=== PATIENT | female | born 1985 | race Caucasian/White ===

== ENCOUNTER 2016-02-17 16:29 | Inpatient (IN) | payer OTHER ==
[2016-02-17 16:32] VITALS: BMI 31.8
--- NOTE | 2016-02-17 19:51 | HP ---
CIWA Score - CIWA Score Nausea/Vomitin-Int. Nausea w/Dry Heave Muscle Tremors: 3 Anxiety: 3 Agitation: 3 Paroxysmal Sweats: 3 Orientation: 0-Oriented Tacttile Disturbances: 1-Very Mild Itch/Numbness Auditory Disturbances: 0-None Visual Disturbances: 0-None Headache: 2-Mild CIWA-Ar Total Score: 19 Admission ROS BHS - HPI Chief Complaint: WITHDRAWAL SYMPTOMS Allergies/Adverse Reactions: Allergies Allergy/AdvReac Type Severity Reaction Status Date / Time clindamycin Allergy Verified 02/17/16 19:48 Fish Containing Products Allergy Verified 02/17/16 19:48 sulfur dioxide AdvReac Verified 02/17/16 19:48 History of Present Illness: 30 Y.O. WOMAN WITH AN EXTENSIVE HISTORY OF ALCOHOL AND DRUG DEPENDENCE IS SEEKING DETOX. SHE REPORTS HAVING A 2 YEAR PERIOD OF SOBRIETY. SHE HAS COMPLETED MULTIPLE DETOXES AND REHABS AT OTHER FACILITIES. Exam Limitations: No Limitations - Ebola screening Have you traveled outside of the country in the last 21 days: No Have you had contact with anyone from an Ebola affected area: No Have you been sick,other than usual withdrawal symptoms: No Do you have a fever: No - Review of Systems Constitutional: Chills, Changes in sleep EENT: reports: Blurred Vision, Tearing Respiratory: reports: Cough, Shortness of Breath Cardiac: reports: No Symptoms Reported GI: reports: Diarrhea, Nausea, Abdominal cramping : reports: No Symptoms Reported Musculoskeletal: reports: Back Pain Integumentary: reports: No Symptoms Reported Neuro: reports: Headache, Numbness, Tingling (B/L FEET) Endocrine: reports: No Symptoms Reported Hematology: reports: No Symptoms Reported Psychiatric: reports: Orientated x3, Depressed Other Systems: Reviewed and Negative Patient History - Patient Medical History Hx Anemia: No Hx Asthma: No Hx Chronic Obstructive Pulmonary Disease (COPD): No Hx Cancer: No Hx Cardiac Disorders: No Hx Congestive Heart Failure: No Hx Hypertension: No Hx Hypercholesterolemia: No Hx Pacemaker: No HX Cerebrovascular Accident: No Hx Seizures: Yes (BENZO RELATED; LAST SZ ON 02/16/16) Hx Dementia: No Hx Diabetes: No Hx Gastrointestinal Disorders: Yes (ACID REFLUX ) Hx Liver Disease: No Hx Genitourinary Disorders: No Hx Sexually Transmitted Disorders: No Hx Renal Disease (ESRD): No Hx Thyroid Disease: No Hx Human Immunodeficiency Virus (HIV): No Hx Hepatitis C: No Hx Depression: Yes (PRESCRIBED ATIVAN AND PROZAC ) Hx Suicide Attempt: No Hx Bipolar Disorder: No Hx Schizophrenia: No - Patient Surgical History Past Surgical History: Yes Hx Neurologic Surgery: No Hx Cataract Extraction: No Hx Cardiac Surgery: No Hx Lung Surgery: No Hx Breast Surgery: No Hx Breast Biopsy: No Hx Abdominal Surgery: No Hx Appendectomy: No Hx Cholecystectomy: No Hx Genitourinary Surgery: No Hx Section: No Hx Orthopedic Surgery: No Hx Hysterectomy: Yes (LEFT-SIDED FACIAL RECONSTRUCTION SX-2013) Anesthesia Reaction: No - PPD History Previous Implant?: Yes Documented Results: Negative w/o proof PPD to be Administered?: Yes - Reproductive History Patient is a Female of Child Bearing Age (11 -55 yrs old): Yes Last Menstrual Period: 01/22/16 Patient : No - Smoking Cessation Smoking history: Current every day smoker Have you smoked in the past 12 months: Yes Aproximately how many cigarettes per day: 20 Hx Chewing Tobacco Use: No Initiated information on smoking cessation: Yes 'Breaking Loose' booklet given: 02/17/16 - Substance & Tx. History Hx Alcohol Use: Yes (VODKA ) Hx Substance Use: Yes (ATIVAN ) Substance Use Type: Prescribed Hx Substance Use Treatment: Yes (DETOX AND REHAB ) - Substances Abused Alcohol Route: Oral Frequency: Daily Amount used: 2 PINTS OF LIQUOR Age of first use: 17 Date of Last Use: 02/17/16 ATIVAN Route: Oral Frequency: Daily Amount used: 6MG Age of first use: 24 Date of Last Use: 02/16/16 Family Disease History - Family Disease History Family Disease History: CA: Grandparent (COLON ) Admission Physical Exam BHS - Vital Signs Vital Signs: Vital Signs - 24 hr 02/17/16 16:30 Temperature 98.3 F Pulse Rate 90 Respiratory 20 Rate Blood Pressure 167/100 - Physical General Appearance: Yes: Disheveled, Tremorous, Sweating, Anxious HEENTM: Yes: Hearing grossly Normal, Normal Voice, Nasal Congestion, Other (LEFT -SIDED FACIAL DEFORMITY) Respiratory: Yes: Chest Non-Tender, No Respiratory Distress, No Accessory Muscle Use, Wheezing Neck: Yes: No masses,lesions,Nodules, Trachea in good position Breast: Yes: Breast Exam Deferred Cardiology: Yes: Regular Rhythm, Regular Rate Abdominal: Yes: Normal Bowel Sounds, Non Tender, Flat, Soft Genitourinary: Yes: Within Normal Limits Back: Yes: Normal Inspection Musculoskeletal: Yes: Back pain Extremities: Yes: Normal Inspection, Normal Range of Motion, Non-Tender, Tremors Neurological: Yes: Fully Oriented, Alert, Normal Mood/Affect, Normal Response Integumentary: Yes: Normal Color, Dry, Warm Lymphatic: Yes: Within Normal Limits - Diagnostic (1) Alcohol dependence with uncomplicated withdrawal Current Visit: Yes Status: Chronic (2) Sedative, hypnotic or anxiolytic dependence with withdrawal, uncomplicated Current Visit: Yes Status: Chronic (3) GERD (gastroesophageal reflux disease) Current Visit: Yes Status: Chronic Cleared for Admission [facility] - Detox or Rehab [facility] Level of Care: Medically Managed Detox Regimen/Protocol: Valium [facility] Breath Alcohol Content Breath Alcohol Content: 0.112 Urine Pregancy Test - Result Urine Test Results: Negative- NO Line Present Urine Drug Screen - Results Drug Screen Negative: No Urine Drug Screen Results: THC-Marijuana
[2016-02-17] MEDS ORDERED: NICOTINE POLACRILEX 2 MG GUM BUC PRN (20:01)
[2016-02-17] MEDS ORDERED: guaiFENesin/D-METHORPHAN HB 10 ML UNIT-DOSE CUPS PO PRN (20:01)
[2016-02-17] MEDS ORDERED: diazePAM 5 MG TABLET PO PRN (20:01)
[2016-02-17] MEDS ORDERED: IBUPROFEN 400 MG TABLET (FP) PO PRN (20:01)
[2016-02-17] MEDS ORDERED: P-EPHED 60MG/TRIPROLIDI 2.5MG TABLET PO PRN (20:01)
[2016-02-17] MEDS ORDERED: LOPERAMIDE HCL 2 MG CAPSULE PO PRN (20:01)
[2016-02-17] MEDS ORDERED: MENTHOL/PHENOL 1 EACH UD MM PRN (20:01)
[2016-02-17] MEDS ORDERED: MAGNESIUM HYDROX 2400MG/30ML ORAL SUSPENSION 30 ML CUP PO PRN (20:01)
[2016-02-17] MEDS ORDERED: MAG HYDROX/AL HYDROX/SIMETH 30 ML UNIT-DOSE CUP PO PRN (20:01)
[2016-02-17] MEDS ORDERED: diphenhydrAMINE HCL 50 MG CAPSULE PO PRN (20:01)
[2016-02-17] MEDS ORDERED: MAGNESIUM CITRATE 300 ML BOTTLE PO PRN (20:01)
[2016-02-17] MEDS ORDERED: diazePAM 5 MG TABLET PO ONE (20:01)
[2016-02-17] MEDS: diazePAM 5 MG TABLET PO SCH (22:55)
[2016-02-17] MEDS: THIAMINE HCL 100 MG TABLET (FP) PO SCH (23:11)
[2016-02-18] MEDS: diazePAM 5 MG TABLET PO SCH (05:42)
[2016-02-18] MEDS ORDERED: ONDANSETRON 8 MG TABLET (FP) PO PRN (07:07)
[2016-02-18] MEDS: hydrOXYzine PAMOATE 50 MG CAPSULE (FP) PO PRN ×2 (07:09→12:24)
[2016-02-18] MEDS: RANITIDINE HCL 150 MG TABLET (FP) PO SCH (10:23)
[2016-02-18] MEDS: PRENATAL VITAMINS W/ FOLIC ACID TABLET (FP) PO SCH (10:23)
[2016-02-18 10:24] LABS: URINE APPEARANCE CLEAR; URINE BILIRUBIN NEGATIVE (NEGATIVE); URINE BLOOD 3+ (NEGATIVE); URINE COLOR YELLOW; URINE GLUCOSE (UA) NEGATIVE (NEGATIVE); URINE KETONE TRACE (NEGATIVE); URINE LEUK ESTERASE NEGATIVE (NEGATIVE); URINE NITRITE NEGATIVE (NEGATIVE); URINE PROTEIN NEGATIVE (NEGATIVE); URINE UROBILINOGEN NEGATIVE E.U./dl (0.2-1.0)
[2016-02-18] MEDS: NICOTINE 21 MG/24 HOURS TOPICAL PATCH TD SCH (10:24)
[2016-02-18 10:32] LABS: MCH 33.4 pg (25.7-33.7); MCHC 33.6 g/dl (32.0-36.0); MEAN CELL VOLUME 99.2 fl (80-96); MEAN PLT VOLUME 8.2 fl (7.5-11.1); PLATELET COUNT 298 K/MM3 (134-434); RDW 14.6 % (11.6-15.6); WHITE BLOOD COUNT 7.6 K/mm3 (4.0-10.0)
[2016-02-18 11:13] LABS: URINE BACTERIA RARE /hpf (NONE SEEN); URINE MUCUS FEW; URINE RBC 8 /hpf (0-3); URINE WBC 5 /hpf (3-5)
[2016-02-18 11:19] LABS: ALBUMIN 3.7 g/dl (3.4-5.0); ANION GAP 9 (8-16); CALCIUM 8.4 mg/dL (8.5-10.1); CO2 24 mmol/L (21-32); CREATININE 0.6 mg/dL (0.55-1.02); GLUCOSE,RANDOM 91 mg/dL (74-106); SGOT/AST 19 U/L (15-37); SGPT/ALT 22 U/L (12-78)
[2016-02-18 11:21] LABS: ALK PHOS 53 U/L (45-117); BILIRUBIN,TOTAL 0.4 mg/dL (0.2-1.0); TOT PROT 6.7 g/dl (6.4-8.2)
--- NOTE | 2016-02-18 11:28 | EKG ---
Test Reason : Blood Pressure : / mmHG Vent. Rate : 082 BPM Atrial Rate : 082 BPM P-R Int : 140 ms QRS Dur : 082 ms QT Int : 414 ms P-R-T Axes : -20 062 050 degrees QTc Int : 483 ms NORMAL SINUS RHYTHM PROLONGED QT ABNORMAL ECG NO PREVIOUS ECGS AVAILABLE Confirmed by WEI SEGUNDO MD ([id number]) on 02/18/2016 11:28:00 AM Referred By: Confirmed By:WEI SEGUNDO MD
--- NOTE | 2016-02-18 12:13 | PN ---
S CIWA - CIWA Score Nausea/Vomitin Muscle Tremors: 3 Anxiety: 3 Agitation: 3 Paroxysmal Sweats: 1-Minimal Palms Moist Orientation: 0-Oriented Tacttile Disturbances: 1-Very Mild Itch/Numbness Auditory Disturbances: 1-Very Mild Visual Disturbances: 1-Very Mild Sensitivity Headache: 2-Mild CIWA-Ar Total Score: 18 S Progress Note (SOAP) Subjective: ALERT,IRRITABLE,ANXIOUS,INTERRUPTED SLEEP,TREMOR,PAIN IN THE BODY Objective: 02/18/16 12:10 Vital Signs Temperature 97.5 F L 02/18/16 10:31 Pulse Rate 92 H 02/18/16 10:31 Respiratory Rate 18 02/18/16 10:31 Blood Pressure 127/76 02/18/16 10:31 O2 Sat by Pulse Oximetry (%) EKG NSR.PROLONG QT 02/18/16 12:11 Laboratory Last Values WBC 7.6 K/mm3 (4.0-10.0) 02/18/16 08:00 RBC 3.91 M/mm3 (3.60-5.2) 02/18/16 08:00 Hgb 13.1 GM/dL (10.7-15.3) 02/18/16 08:00 Hct 38.8 % (32.4-45.2) 02/18/16 08:00 MCV 99.2 fl (80-96) H 02/18/16 08:00 MCHC 33.6 g/dl (32.0-36.0) 02/18/16 08:00 RDW 14.6 % (11.6-15.6) 02/18/16 08:00 Plt Count 298 K/MM3 (134-434) 02/18/16 08:00 MPV 8.2 fl (7.5-11.1) 02/18/16 08:00 Sodium 139 mmol/L (136-145) 02/18/16 08:00 Potassium 3.7 mmol/L (3.5-5.1) 02/18/16 08:00 Chloride 106 mmol/L (98-107) 02/18/16 08:00 Carbon Dioxide 24 mmol/L (21-32) 02/18/16 08:00 Anion Gap 9 (8-16) 02/18/16 08:00 BUN 6 mg/dL (7-18) L 02/18/16 08:00 Creatinine 0.6 mg/dL (0.55-1.02) 02/18/16 08:00 Creat Clearance w eGFR > 60 (>60) 02/18/16 08:00 Random Glucose 91 mg/dL (74-106) 02/18/16 08:00 Calcium 8.4 mg/dL (8.5-10.1) L 02/18/16 08:00 Total Bilirubin 0.4 mg/dL (0.2-1.0) 02/18/16 08:00 AST 19 U/L (15-37) 02/18/16 08:00 ALT 22 U/L (12-78) 02/18/16 08:00 Alkaline Phosphatase 53 U/L (45-117) 02/18/16 08:00 Total Protein 6.7 g/dl (6.4-8.2) 02/18/16 08:00 Albumin 3.7 g/dl (3.4-5.0) 02/18/16 08:00 Urine Color Yellow 02/18/16 08:00 Urine Appearance Clear 02/18/16 08:00 Urine pH 6.0 (5.0-8.0) 02/18/16 08:00 Ur Specific [place] 1.015 (1.001-1.035) 02/18/16 08:00 Urine Protein Negative (NEGATIVE) 02/18/16 08:00 Urine Glucose (UA) Negative (NEGATIVE) 02/18/16 08:00 Urine Ketones Trace (NEGATIVE) H 02/18/16 08:00 Urine Blood 3+ (NEGATIVE) H 02/18/16 08:00 Urine Nitrite Negative (NEGATIVE) 02/18/16 08:00 Urine Bilirubin Negative (NEGATIVE) 02/18/16 08:00 Urine Urobilinogen Negative E.U./dl (0.2-1.0) 02/18/16 08:00 Ur Leukocyte Esterase Negative (NEGATIVE) 02/18/16 08:00 Urine RBC 8 /hpf (0-3) 02/18/16 08:00 Urine WBC 5 /hpf (3-5) 02/18/16 08:00 Ur Epithelial Cells Rare /hpf (FEW) 02/18/16 08:00 Urine Bacteria Rare /hpf (NONE SEEN) 02/18/16 08:00 Urine Mucus Few 02/18/16 08:00 02/18/16 12:11 LABS PENDING Assessment: 02/18/16 12:11 WITHDRAWAL SYMPTOM Plan: CONTINUE DETOX,PATIENT WOULD LIKE REGIMENT TO CHANGE TO [facility]RIUM
[2016-02-18] MEDS: ONDANSETRON *ODT* 4 MG TABLET SL PRN (12:24)
[2016-02-18] MEDS: chlordiazePOXIDE HCL 25 MG CAPSULE PO SCH ×2 (18:00→22:06)
[2016-02-18] MEDS: chlordiazePOXIDE HCL 25 MG CAPSULE PO PRN (19:48)
[2016-02-18] MEDS: THIAMINE HCL 100 MG TABLET (FP) PO SCH (22:06)
[2016-02-18] MEDS: hydrOXYzine PAMOATE 50 MG CAPSULE (FP) PO SCH (22:06)
[2016-02-18] MEDS: ACETAMINOPHEN 325 MG TABLET (FP) PO PRN (22:07)
[2016-02-19] MEDS: chlordiazePOXIDE HCL 25 MG CAPSULE PO SCH ×4 (05:54→22:10)
[2016-02-19] MEDS: ONDANSETRON *ODT* 4 MG TABLET SL PRN (08:35)
[2016-02-19] MEDS: chlordiazePOXIDE HCL 25 MG CAPSULE PO PRN ×3 (08:35→18:54)
[2016-02-19] MEDS ORDERED: diazePAM 5 MG TABLET PO SCH (10:00)
[2016-02-19] MEDS: PRENATAL VITAMINS W/ FOLIC ACID TABLET (FP) PO SCH (10:10)
[2016-02-19] MEDS: RANITIDINE HCL 150 MG TABLET (FP) PO SCH (10:10)
[2016-02-19] MEDS: NICOTINE 21 MG/24 HOURS TOPICAL PATCH TD SCH (10:11)
[2016-02-19] MEDS: hydrOXYzine PAMOATE 50 MG CAPSULE (FP) PO PRN ×2 (10:39→15:19)
[2016-02-19] MEDS ORDERED: TRIMETHOBENZAMIDE HCL 300 MG CAPSULE PO PRN (10:52)
[2016-02-19] MEDS ORDERED: LIDOCAINE 5% TOPICAL PATCH TP ONE (10:53)
--- NOTE | 2016-02-19 10:54 | PN ---
S CIWA - CIWA Score Nausea/Vomitin-Mild Nausea/No Vomiting Muscle Tremors: 4-Moderate,w/Arms Extend Anxiety: 4-Mod. Anxious/Guarded Agitation: 4-Moderately Restless Paroxysmal Sweats: 3 Orientation: 0-Oriented Tacttile Disturbances: 0-None Auditory Disturbances: 0-None Visual Disturbances: 0-None Headache: 1-Very Mild CIWA-Ar Total Score: 17 BHS Progress Note (SOAP) Subjective: interrupted sleep sweats shakes headache nausea diarrhea back pain Objective: 02/19/16 10:58 Vital Signs Temperature 97.7 F 02/19/16 10:26 Pulse Rate 80 02/19/16 10:26 Respiratory Rate 18 02/19/16 10:26 Blood Pressure 118/76 02/19/16 10:26 O2 Sat by Pulse Oximetry (%) Laboratory Tests 02/18/16 02/18/16 02/18/16 08:00 08:00 08:00 WBC 7.6 RBC 3.91 Hgb 13.1 Hct 38.8 MCV 99.2 H MCHC 33.6 RDW 14.6 Plt Count 298 MPV 8.2 Sodium 139 Potassium 3.7 Chloride 106 Carbon Dioxide 24 Anion Gap 9 BUN 6 L Creatinine 0.6 Creat Clearance w eGFR > 60 Random Glucose 91 Calcium 8.4 L Total Bilirubin 0.4 AST 19 ALT 22 Alkaline Phosphatase 53 Total Protein 6.7 Albumin 3.7 Urine Color Urine Appearance Urine pH Ur Specific [place] Urine Protein Urine Glucose (UA) Urine Ketones Urine Blood Urine Nitrite Urine Bilirubin Urine Urobilinogen Ur Leukocyte Esterase Urine RBC Urine WBC Ur Epithelial Cells Urine Bacteria Urine Mucus RPR Titer Nonreactive 02/18/16 08:00 WBC RBC Hgb Hct MCV MCHC RDW Plt Count MPV Sodium Potassium Chloride Carbon Dioxide Anion Gap BUN Creatinine Creat Clearance w eGFR Random Glucose Calcium Total Bilirubin AST ALT Alkaline Phosphatase Total Protein Albumin Urine Color Yellow Urine Appearance Clear Urine pH 6.0 Ur Specific [place] 1.015 Urine Protein Negative Urine Glucose (UA) Negative Urine Ketones Trace H Urine Blood 3+ H Urine Nitrite Negative Urine Bilirubin Negative Urine Urobilinogen Negative Ur Leukocyte Esterase Negative Urine RBC 8 Urine WBC 5 Ur Epithelial Cells Rare Urine Bacteria Rare Urine Mucus Few RPR Titer awake/alert ambulating no acute distress Assessment: 02/19/16 11:06 withdrawal sx Plan: continue detox increase fluids lidocaine patch motrin 600mg prn
--- NOTE | 2016-02-19 11:54 | CONSULT ---
[facility] Psychiatric Consult - Data Date of interview: 02/19/16 Admission source: [facility] Identifying data: This is 30 years old female with no psychiatric hospitalization history intoxicated with: Alcohool, Benzodiazepins and Nicotine Substance Abuse History: - Smoking Cessation. Smoking history: Current every day smoker. Have you smoked in the past 12 months: Yes. Aproximately how many cigarettes per day: 20. Hx Chewing Tobacco Use: No. Initiated information on smoking cessation: Yes. 'Breaking Loose' booklet given: 02/17/16. - Substance & Tx. History. Hx Alcohol Use: Yes (VODKA ). Hx Substance Use: Yes (ATIVAN ). Substance Use Type: Prescribed. Hx Substance Use Treatment: Yes (DETOX AND REHAB ). - Substances Abused. Alcohol. Route: Oral. Frequency: Daily. Amount used: 2 PINTS OF LIQUOR. Age of first use: 17. Date of Last Use: . ATIVAN. Route: Oral. Frequency: Daily. Amount used: 6MG. Age of first use: 24. Date of Last Use: 02/16/16 Medical History: GERD Psychiatric History: Patient reports history of depression and anxiety, reports taking prior to admission: Prozac 30mg poqd. Ambien 10mg po qhs Physical/Sexual Abuse/Trauma History: Denies Additional Comment: Prozac 30mg poqd. Ambien 10mg po qhs Mental Status Exam - Mental Status Exam Alert and Oriented to: Person Cognitive Function: Fair Patient Appearance: Unkempt Mood: Sad Affect: Flat Patient Behavior: Cooperative Speech Pattern: Appropriate Voice Loudness: Normal Thought Process: Goal Oriented Thought Disorder: Being Controlled Hallucinations: Denies Suicidal Ideation: Denies Homicidal Ideation: Denies Insight/Judgement: Fair Sleep: Difficulty falling asleep Appetite: Fair Muscle strength/Tone: Normal Gait/Station: Normal Additional Comments: Prozac 30mg poqd. Ambien 10mg po qhs Psychiatric Findings - Problem List ([place] 1, 2,3) (1) Alcohol dependence with uncomplicated withdrawal Current Visit: Yes Status: Chronic (2) Sedative, hypnotic or anxiolytic dependence with withdrawal, uncomplicated Current Visit: Yes Status: Chronic (3) Drug-induced mood disorder Current Visit: Yes Status: Acute - Initial Treatment Plan Initial Treatment Plan: Prozac 30mg poqd. Ambien 10mg po qhs
[2016-02-19] MEDS: FLUoxetine HCL 20 MG CAPSULE (FP) PO SCH (15:19)
[2016-02-19] MEDS: IBUPROFEN 600 MG TABLET (FP) PO PRN (18:09)
[2016-02-19] MEDS: ZOLPIDEM TARTRATE 10 MG TABLET (PARK CARE ONLY) PO PRN (22:10)
[2016-02-19] MEDS: hydrOXYzine PAMOATE 50 MG CAPSULE (FP) PO SCH (22:11)
[2016-02-19] MEDS: ACETAMINOPHEN 325 MG TABLET (FP) PO PRN (22:12)
[2016-02-19] MEDS: THIAMINE HCL 100 MG TABLET (FP) PO SCH (22:12)
[2016-02-20] MEDS: chlordiazePOXIDE HCL 25 MG CAPSULE PO SCH ×2 (05:52→10:18)
[2016-02-20] MEDS: chlordiazePOXIDE HCL 25 MG CAPSULE PO PRN ×2 (07:47→12:13)
[2016-02-20] MEDS ORDERED: LIDOCAINE 5% TOPICAL PATCH TP SCH (10:00)
[2016-02-20] MEDS: RANITIDINE HCL 150 MG TABLET (FP) PO SCH (10:18)
[2016-02-20] MEDS: PRENATAL VITAMINS W/ FOLIC ACID TABLET (FP) PO SCH (10:18)
[2016-02-20] MEDS: FLUoxetine HCL 20 MG CAPSULE (FP) PO SCH (10:18)
[2016-02-20] MEDS: NICOTINE 21 MG/24 HOURS TOPICAL PATCH TD SCH (10:19)
[2016-02-20] MEDS: IBUPROFEN 600 MG TABLET (FP) PO PRN ×2 (10:21→22:26)
--- NOTE | 2016-02-20 13:49 | PN ---
BHS Progress Note (SOAP) Subjective: interrupted sleep, sweats, nausea , lbp Objective: 02/20/16 13:48 Vital Signs Temperature 97.5 F L 02/20/16 09:45 Pulse Rate 84 02/20/16 09:45 Respiratory Rate 20 02/20/16 09:45 Blood Pressure 140/82 02/20/16 09:45 O2 Sat by Pulse Oximetry (%) Laboratory Tests 02/18/16 02/18/16 02/18/16 08:00 08:00 08:00 WBC 7.6 RBC 3.91 Hgb 13.1 Hct 38.8 MCV 99.2 H MCHC 33.6 RDW 14.6 Plt Count 298 MPV 8.2 Sodium 139 Potassium 3.7 Chloride 106 Carbon Dioxide 24 Anion Gap 9 BUN 6 L Creatinine 0.6 Creat Clearance w eGFR > 60 Random Glucose 91 Calcium 8.4 L Total Bilirubin 0.4 AST 19 ALT 22 Alkaline Phosphatase 53 Total Protein 6.7 Albumin 3.7 Urine Color Urine Appearance Urine pH Ur Specific [place] Urine Protein Urine Glucose (UA) Urine Ketones Urine Blood Urine Nitrite Urine Bilirubin Urine Urobilinogen Ur Leukocyte Esterase Urine RBC Urine WBC Ur Epithelial Cells Urine Bacteria Urine Mucus RPR Titer Nonreactive 02/18/16 08:00 WBC RBC Hgb Hct MCV MCHC RDW Plt Count MPV Sodium Potassium Chloride Carbon Dioxide Anion Gap BUN Creatinine Creat Clearance w eGFR Random Glucose Calcium Total Bilirubin AST ALT Alkaline Phosphatase Total Protein Albumin Urine Color Yellow Urine Appearance Clear Urine pH 6.0 Ur Specific [place] 1.015 Urine Protein Negative Urine Glucose (UA) Negative Urine Ketones Trace H Urine Blood 3+ H Urine Nitrite Negative Urine Bilirubin Negative Urine Urobilinogen Negative Ur Leukocyte Esterase Negative Urine RBC 8 Urine WBC 5 Ur Epithelial Cells Rare Urine Bacteria Rare Urine Mucus Few RPR Titer pt aox3 in nad ambulating Assessment: 02/20/16 13:48 withdrawl sx's Plan: cont. detox increase fluids d/c in am
[2016-02-20] MEDS: hydrOXYzine PAMOATE 50 MG CAPSULE (FP) PO PRN (16:24)
[2016-02-20] MEDS: chlordiazePOXIDE 5 MG CAPSULE PO SCH ×2 (18:14→22:25)
[2016-02-20] MEDS: ZOLPIDEM TARTRATE 10 MG TABLET (PARK CARE ONLY) PO PRN (22:25)
[2016-02-20] MEDS: hydrOXYzine PAMOATE 50 MG CAPSULE (FP) PO SCH (22:25)
[2016-02-20] MEDS: THIAMINE HCL 100 MG TABLET (FP) PO SCH (22:26)
[2016-02-21] MEDS: chlordiazePOXIDE 5 MG CAPSULE PO SCH (05:43)
[2016-02-21 06:08] VITALS: BP 118/59; PULSE 61; TEMP 97.7
--- NOTE | 2016-02-21 09:13 | DS ---
[facility] Detox Discharge Summary Admission Date: 02/17/16 Discharge Date: 02/21/16 - History Present History: Alcohol Dependence, Sedative Dependence - Physical Exam Results Vital Signs: Vital Signs Temperature 97.7 F 02/21/16 06:00 Pulse Rate 61 02/21/16 06:00 Respiratory Rate 18 02/21/16 06:00 Blood Pressure 118/59 02/21/16 06:00 O2 Sat by Pulse Oximetry (%) - Treatment Hospital Course: Detox Protocol Followed, Detoxed Safely, Responded well, Discharged Condition Good - Medication Discharge Medications: Ambulatory Orders Fluoxetine HCl [Prozac -] 20 mg PO DAILY 02/17/16 Fluoxetine HCl [Prozac -] 20 mg PO DAILY #30 capsule 02/19/16 Zolpidem Tartrate [Ambien] 10 mg PO HS PRN #14 tablet MDD 10 02/19/16 - Diagnosis (1) Drug-induced mood disorder Current Visit: Yes Status: Chronic (2) Alcohol dependence with uncomplicated withdrawal Current Visit: Yes Status: Chronic (3) GERD (gastroesophageal reflux disease) Current Visit: Yes Status: Chronic Qualifiers: Esophagitis presence: without esophagitis Qualified Code(s): K21.9 - Gastro-esophageal reflux disease without esophagitis (4) Sedative, hypnotic or anxiolytic dependence with withdrawal, uncomplicated Current Visit: Yes Status: Chronic - AMA Did Patient Leave Against Medical Advice: No
[2016-02-21] MEDS: FLUoxetine HCL 20 MG CAPSULE (FP) PO SCH (09:15)
[2016-02-21] MEDS: RANITIDINE HCL 150 MG TABLET (FP) PO SCH (09:15)
[2016-02-21] MEDS: hydrOXYzine PAMOATE 50 MG CAPSULE (FP) PO PRN (09:16)
[2016-02-21] MEDS ORDERED: diazePAM 5 MG TABLET PO SCH (10:00)
[2016-02-21] MEDS ORDERED: chlordiazePOXIDE HCL 10 MG CAPSULE PO SCH (17:00)
== END 2016-02-21 09:46 | disposition home or self-care (01) | DRG 775 ==
LOC: YASAS 16:29 → Y6N 20:00
PROVIDERS: ADMIT Internal Medicine; ATTEND Internal Medicine
PROC: HZ2ZZZZ Detoxification Services for Substance Abuse Treatment (ICD-10-PCS; principal; 2016-02-17)
DX: F13.230 Sedative, hypnotic or anxiolytic dependence with withdrawal, uncomplicated (principal); F10.230 Alcohol dependence with withdrawal, uncomplicated; F17.210 Nicotine dependence, cigarettes, uncomplicated; F19.24 Other psychoactive substance dependence with psychoactive substance-induced mood disorder; K21.9 Gastro-esophageal reflux disease without esophagitis; Z86.69 Personal history of other diseases of the nervous system and sense organs
CPT/HCPCS: 36415; 80053; 81003; 81015; 85027; 86593; 93005; 93010

== ENCOUNTER 2023-06-01 15:56 | Inpatient (IN) | payer OTHER ==
[2023-06-01 16:41] VITALS: BMI 25.9
[2023-06-01] MEDS ORDERED: NALOXONE HCL (KLOXXADO) 8 MG SPRAY NS PRN (18:39)
[2023-06-01] MEDS ORDERED: ONDANSETRON *ODT* 4 MG TABLET SL PRN (18:39)
[2023-06-01] MEDS ORDERED: MAG HYDROX/AL HYDROX/SIMETH 30 ML UNIT-DOSE CUP PO PRN (18:39)
[2023-06-01] MEDS ORDERED: hydrOXYzine PAMOATE 25 MG CAPSULE (FP) PO PRN (18:39)
[2023-06-01] MEDS ORDERED: NALOXONE HCL 0.4 MG/ML VIAL IM PRN (18:39)
[2023-06-01] MEDS ORDERED: POLYETHYLENE GLYCOL (HEALTHYLAX) 3350 17 GM PACKET PO PRN (18:39)
[2023-06-01] MEDS ORDERED: MAGNESIUM HYDROX 2400MG/30ML ORAL SUSPENSION 30 ML CUP PO PRN (18:39)
[2023-06-01] MEDS ORDERED: BENZOCAINE/MENTHOL (CHLORASEPTIC ) LOZENGE MM PRN (18:39)
[2023-06-01] MEDS: chlordiazePOXIDE HCL 25 MG CAPSULE PO PRN (19:42)
[2023-06-01] MEDS: LOPERAMIDE HCL 2 MG CAPSULE PO PRN (19:44)
[2023-06-01] MEDS: METHOCARBAMOL 500 MG TABLET PO PRN (20:01)
[2023-06-01] MEDS: TRIMETHOBENZAMIDE HCL 200MG/2ML INJ IM ONE (21:42)
[2023-06-01] MEDS: THIAMINE 100 MG TABLET PO SCH (22:06)
[2023-06-01] MEDS: MELATONIN 5 MG TABLETS PO SCH (22:06)
[2023-06-01] MEDS: chlordiazePOXIDE HCL 25 MG CAPSULE PO SCH (22:07)
[2023-06-02] MEDS: BENZONATATE 200 MG CAPSULE PO PRN (00:45)
[2023-06-02] MEDS: guaiFENesin 600 MG TABLET.ER (FP) PO PRN (06:23)
[2023-06-02] MEDS ORDERED: ZOLPIDEM TARTRATE 5 MG PO PRN (07:35)
[2023-06-02] MEDS: TRIMETHOBENZAMIDE HCL 200MG/2ML INJ IM ONE (09:47)
[2023-06-02] MEDS: BUPRENORPHINE/NALOXONE 2 MG/0.5 MG FILM PACKET SL SCH (10:27)
[2023-06-02] MEDS: diazePAM 5 MG TABLET PO SCH (10:28)
[2023-06-02] MEDS: FAMOTIDINE 20 MG TABLET PO SCH (10:28)
[2023-06-02] MEDS: PRENATAL VITAMINS W/ FOLIC ACID TABLET (FP) PO SCH (10:28)
[2023-06-02 11:48] LABS: HEMOGLOBIN 13.7 GM/dL (10.7-15.3); MCH 33.6 pg (25.7-33.7); MCHC 33.4 g/dl (32.0-36.0); MEAN CELL VOLUME 100.6 fl (80-96); MEAN PLT VOLUME 8.6 fl (7.5-11.1); PLATELET COUNT 232 10^3/uL (134-434); RBC 4.07 M/mm3 (3.60-5.2); RDW 15.7 % (11.6-15.6); WHITE BLOOD COUNT 11.5 K/mm3 (4.0-10.0)
[2023-06-02 11:50] LABS: CHLORIDE 100 mmol/L (98-107); POTASSIUM 3.4 mmol/L (3.5-5.1); SODIUM 137 mmol/L (136-145)
[2023-06-02 11:55] LABS: ALBUMIN 3.9 g/dl (3.4-5.0); ANION GAP 8 mmol/L (4-13); BLOOD UREA NITROGEN 6.1 mg/dL (7-18); CALCIUM 8.9 mg/dL (8.5-10.1); CO2 29 mmol/L (21-32); GLUCOSE,RANDOM 120 mg/dL (74-106)
[2023-06-02 11:58] LABS: CREATININE 0.6 mg/dL (0.55-1.3); SGOT/AST 85 U/L (15-37)
[2023-06-02 12:01] LABS: BILIRUBIN,TOTAL 1.6 mg/dL (0.2-1)
[2023-06-02 12:02] LABS: ALK PHOS 81 U/L (45-117)
[2023-06-02 12:10] LABS: SGPT/ALT 71 U/L (13-61)
[2023-06-02] MEDS: diazePAM 5 MG TABLET PO PRN (13:09)
[2023-06-02] MEDS: traZODone HCL 100 MG TABLET (FP) PO SCH (22:05)
[2023-06-02] MEDS: BUPRENORPHINE/NALOXONE 8 MG/2 MG FILM PACKET SL SCH (22:09)
[2023-06-03] MEDS: BISMUTH SUBSALICYLATE 524 MG/30 ML PO PRN (00:03)
[2023-06-03] MEDS ORDERED: chlordiazePOXIDE HCL 25 MG CAPSULE PO SCH (05:00)
[2023-06-03] MEDS: amLODIPine BESYLATE 10 MG TABLET (FP) PO SCH (14:57)
[2023-06-03] MEDS: POTASSIUM CHLORIDE ORAL LIQUID 20 MEQ/15 ML PO ONE (14:57)
[2023-06-03] MEDS: ACETAMINOPHEN 325 MG TABLET (FP) PO PRN (17:36)
[2023-06-03] MEDS: FLUOCINONIDE 0.05% CREAM (15 GM TUBE) TP SCH (18:30)
[2023-06-03] MEDS: POTASSIUM CHLORIDE ORAL LIQUID 20 MEQ/15 ML PO SCH (22:07)
[2023-06-04] MEDS ORDERED: chlordiazePOXIDE HCL 10 MG CAPSULE PO PRN
[2023-06-04] MEDS ORDERED: chlordiazePOXIDE HCL 10 MG CAPSULE PO SCH (05:00)
[2023-06-04] MEDS: diazePAM 5 MG TABLET PO SCH (06:18)
[2023-06-04 11:25] LABS: HEMATOCRIT 41.7 % (32.4-45.2); HEMOGLOBIN 13.8 GM/dL (10.7-15.3); MCH 33.8 pg (25.7-33.7); MCHC 33.2 g/dl (32.0-36.0); MEAN CELL VOLUME 101.7 fl (80-96); MEAN PLT VOLUME 8.8 fl (7.5-11.1); PLATELET COUNT 200 10^3/uL (134-434); RDW 15.2 % (11.6-15.6); WHITE BLOOD COUNT 6.7 K/mm3 (4.0-10.0)
[2023-06-04 11:59] LABS: POTASSIUM 3.7 mmol/L (3.5-5.1)
[2023-06-04 12:01] LABS: CALCIUM 9.4 mg/dL (8.5-10.1)
[2023-06-04 12:02] LABS: ALBUMIN 3.6 g/dl (3.4-5.0); BLOOD UREA NITROGEN 7.8 mg/dL (7-18)
[2023-06-04 12:05] LABS: CREATININE 0.6 mg/dL (0.55-1.3)
[2023-06-04 12:06] LABS: BILIRUBIN,TOTAL 1.1 mg/dL (0.2-1)
[2023-06-04 12:07] LABS: TOT PROT 6.8 g/dl (6.4-8.2)
[2023-06-04] MEDS: TRIMETHOBENZAMIDE HCL 200MG/2ML INJ IM ONE (12:26)
[2023-06-05] MEDS ORDERED: chlordiazePOXIDE HCL 10 MG CAPSULE PO SCH (05:00)
[2023-06-05] MEDS: diazePAM 5 MG TABLET PO SCH (09:45)
[2023-06-05] MEDS: hydrOXYzine PAMOATE 25 MG CAPSULE (FP) PO PRN (12:11)
[2023-06-05] MEDS: ONDANSETRON *ODT* 4 MG TABLET SL PRN (12:11)
[2023-06-05] MEDS: GABAPENTIN 300 MG CAPSULE PO SCH (14:12)
[2023-06-05] MEDS: IBUPROFEN 600 MG TABLET (FP) PO PRN (16:00)
[2023-06-05] MEDS: SUVOREXANT 10 MG TABLET PO PRN (22:42)
[2023-06-06] MEDS ORDERED: chlordiazePOXIDE HCL 10 MG CAPSULE PO ONE (05:00)
[2023-06-06] MEDS ORDERED: diazePAM 5 MG TABLET PO ONE (06:00)
[2023-06-06] MEDS: diazePAM 5 MG TABLET PO SCH (09:55)
[2023-06-06] MEDS: IBUPROFEN 400 MG TABLET (FP) PO PRN (11:56)
[2023-06-06] MEDS: guaiFENesin 600 MG TABLET.ER (FP) PO PRN (12:47)
[2023-06-06] MEDS: DICYCLOMINE HCL 10 MG CAPSULE PO PRN (22:52)
[2023-06-07] MEDS: diazePAM 5 MG TABLET PO ONE (05:45)
[2023-06-08] MEDS: ONDANSETRON *ODT* 4 MG TABLET SL PRN (19:40)
[2023-06-09 06:12] VITALS: RESP 17
[2023-06-09 08:57] VITALS: BP 152/90; PULSE 88; TEMP 97.6
== END 2023-06-09 09:09 | disposition home or self-care (01) | DRG 773 ==
LOC: YASAS 15:56 → Y3N 18:26
PROVIDERS: ADMIT Allergy & Immunology; ATTEND Surgery
PROC: HZ2ZZZZ Detoxification Services for Substance Abuse Treatment (ICD-10-PCS; principal; 2023-06-01)
DX: F10.230 Alcohol dependence with withdrawal, uncomplicated (principal); F13.230 Sedative, hypnotic or anxiolytic dependence with withdrawal, uncomplicated; F11.20 Opioid dependence, uncomplicated; F14.10 Cocaine abuse, uncomplicated; F12.20 Cannabis dependence, uncomplicated; F17.210 Nicotine dependence, cigarettes, uncomplicated; F41.9 Anxiety disorder, unspecified; E87.6 Hypokalemia; R73.9 Hyperglycemia, unspecified; Z86.69 Personal history of other diseases of the nervous system and sense organs; Z88.0 Allergy status to penicillin; Z88.1 Allergy status to other antibiotic agents; Z88.2 Allergy status to sulfonamides
CPT/HCPCS: 36415; 80053; 80307; 81025; 83036; 85027; 86780; 93005; 93010; Q0162